=== PATIENT | female | born 1970 | race Caucasian/White ===

== ENCOUNTER → 2016-07-21 | Outpatient (CLI) | payer OTHER | LOC: FIMAGING 11:43 | DX: Z12.31 Encounter for screening mammogram for malignant neoplasm of breast (principal) | CPT/HCPCS: G0202 ==

== ENCOUNTER → 2017-04-25 | Outpatient (CLI) | payer OTHER | LOC: FIMAGING 09:47 | PROVIDERS: ATTEND Obstetrics & Gynecology | DX: N93.0 Postcoital and contact bleeding (principal) ==

== ENCOUNTER 2017-08-08 09:30 | Emergency (ER) | payer OTHER ==
--- NOTE | 2017-08-08 09:43 | CPEKG ---
Heart Rate: 48 RR Interval: 1250 P-R Interval: 136 QRSD Interval: 86 QT Interval: 496 QTC Interval: 444 P [place]: 71 QRS [place]: 57 T Wave [place]: 55 EKG Severity - BORDERLINE ECG - EKG Impression: SINUS BRADYCARDIA EKG Impression: PROBABLE LEFT ATRIAL ABNORMALITY Electronically Signed By: Delia Robert 08-Aug-2017 13:45:45
--- NOTE | 2017-08-08 10:01 | EDPHY ---
HPI/HX/ROS/PE/MDM Narrative: CHIEF COMPLAINT: Chest discomfort HISTORY OF PRESENT ILLNESS: This patient is a 47 y/o female complaining of chest discomfort onset this morning. Just before she was going to go for a run, she developed sharp left anterior chest pain. Severity of her discomfort is 6/10. It is worse with deep inspiration. Patient has had similar chest discomfort intermittently for 20 years. She reports that her discomfort usually resolves on its own. She and her physician believe that the discomfort is musculoskeletal. The patient has seen her PCP in the past and had a normal EKG. Today, she went for her run after the pain began and the discomfort began to radiate across her chest as she was running uphill. Currently, the pain remains , which is unusual for her. She denies diaphoresis, nausea, vomiting, neck pain, or palpitations. No swelling or pain in her legs. The patient has had some reflux symptoms in the past. She is a nonsmoker, and has no history of diabetes, hypertension, or hyperlipidemia. She is not taking contraceptive medications. No personal or family history of clotting disorders. Family history positive for CAD with fatal PR in her grandfather at age 65. The patient denies fever, chills, palpitations, vomiting, diarrhea, urinary complaints, headache, lightheadedness. REVIEW OF SYSTEMS: Aside from elements discussed in the HPI, a comprehensive 10-point review of systems was reviewed and is negative. PAST MEDICAL HISTORY: Denies. SOCIAL HISTORY: . Lives in [place]. No recent illicit drug use. VITAL SIGNS: Reviewed by me GENERAL: Well-developed, well-nourished, resting comfortably in no respiratory distress. HEENT: Atraumatic. Eyes: No icterus, no injection. Mouth: moist mucous membranes. No erythema or lesions. Neck: supple with no adenopathy. LUNGS: Clear to auscultation bilaterally, no wheezes, rhonchi or rales. CHEST: Mild tenderness to palpation just to the left of the midsternal area, no crepitus. No rash. CARDIAC: Regular bradycardia, no rubs, murmurs or gallops. ABDOMEN: Soft, nontender, nondistended, bowel sounds normal. BACK: No CVA tenderness. EXTREMITIES: No trauma. No edema. Range of motion is normal throughout. NEURO: Alert and oriented, grossly nonfocal. SKIN: Warm and dry, no rash. PSYCHIATRIC: Normal mentation, no agitation. Portions of this note were transcribed by a senior medical writer. I personally performed a history, physical exam, medical decision making, and confirmed accuracy of information the transcribed note. ED Course: 47 y/o female presents with sharp left-sided chest pain onset this morning. Exam reveals a small red area on the patients anterior left chest where she has been pressing at the location of her discomfort. Plan for EKG, chest x-ray, labs including CBC, chemistries, troponin, lipase. Patient is PERC negative, will not test d-dimer at this time. Plan to administer GI cocktail for symptom relief. 12-LEAD EKG: Please see the full report in [facility]. My interpretation: Sinus bradycardia, rate 48. Laboratory studies are unremarkable. Troponin negative. Creatinine elevated at 1.2 Chest x-ray negative for acute processes. See full interpretation below. Patient's heart score is 1. HEART SCORE: History: 0 EK Age: 2 Risk Factors: 0 Troponin: 0 11:10 Reassessed patient. She informs me she did have a cardiac stress test last fall which was negative. She continues to experience some discomfort, so plan to administer 15mg IV Toradol for pain relief. Following this, plan to discharge home in good condition. Follow up and return precautions discussed. She is comfortable with this plan. MDM: After history and physical examination, the differential for chest pain was considered, including but not limited to, myocardial ischemia, acute coronary syndrome, pulmonary embolus, chest wall pain, GI causes, pleural inflammation and pulmonary infectious causes. - Data Points Imaging Results: Imaging Impressions Chest X-Ray 08/08/17 10:02 Impression: Possible chronic or recurrent airways disease. Otherwise normal. Imaging: I viewed and interpreted images myself Laboratory Results: Laboratory Results 08/08/17 09:43 08/08/17 09:43 08/08/17 08/08/17 09:43 09:43 WBC 5.18 10^3/uL 10^3/uL (3.80-9.50) RBC 4.24 10^6/uL 10^6/uL (4.18-5.33) Hgb 13.2 g/dL g/dL (12.6-16.3) Hct 38.2 % % (38.0-47.0) MCV 90.1 fL fL (81.5-99.8) MCH 31.1 pg pg (27.9-34.1) MCHC 34.6 g/dL g/dL (32.4-36.7) RDW 12.7 % % (11.5-15.2) Plt Count 316 10^3/uL 10^3/uL (150-400) MPV 9.7 fL fL (8.7-11.7) Neut % (Auto) 50.7 % % (39.3-74.2) Lymph % (Auto) 37.1 % % (15.0-45.0) [place] % (Auto) 9.1 % % (4.5-13.0) Eos % (Auto) 1.7 % % (0.6-7.6) Baso % (Auto) 1.2 % % (0.3-1.7) Nucleat RBC Rel Count 0.0 % % (0.0-0.2) Absolute Neuts (auto) 2.63 10^3/uL 10^3/uL (1.70-6.50) Absolute Lymphs (auto) 1.92 10^3/uL 10^3/uL (1.00-3.00) Absolute Monos (auto) 0.47 10^3/uL 10^3/uL (0.30-0.80) Absolute Eos (auto) 0.09 10^3/uL 10^3/uL (0.03-0.40) Absolute Basos (auto) 0.06 10^3/uL 10^3/uL (0.02-0.10) Absolute Nucleated RBC 0.00 10^3/uL 10^3/uL (0-0.01) Immature Gran % 0.2 % % (0.0-1.1) Immature Gran # 0.01 10^3/uL 10^3/uL (0.00-0.10) Sodium 141 mEq/L mEq/L (135-145) Potassium 4.1 mEq/L mEq/L (3.5-5.2) Chloride 103 mEq/L mEq/L (97-110) Carbon Dioxide 27 mEq/l mEq/l (22-31) Anion Gap 11 mEq/L mEq/L (8-16) BUN 15 mg/dL mg/dL (7-23) Creatinine 1.2 mg/dL H mg/dL (0.6-1.0) Estimated GFR 48 Glucose 72 mg/dL mg/dL (70-100) Calcium 9.3 mg/dL mg/dL (8.5-10.4) Troponin I < 0.012 ng/mL ng/mL (0.000-0.034) Lipase 126 IU/L IU/L (23-300) Medications Given: Discontinued Medications Al Hydroxide/Mg Hydroxide (Maalox Susp) 30 ml PO ONCE ONE Stop: 08/08/17 10:03 Last Admin: 08/08/17 10:09 Dose: 30 ml Hyoscyamine Sulfate (Levsin, Hyomax-Sl) 0.25 mg PO ONCE ONE Stop: 08/08/17 10:03 Last Admin: 08/08/17 10:09 Dose: 0.25 mg Lidocaine (Lidocaine 2% Viscous) 15 ml PO ONCE ONE Stop: 08/08/17 10:03 Last Admin: 08/08/17 10:09 Dose: 15 ml General Time Seen by Provider: 08/08/17 09:35 Initial Vital Signs: Initial Vital Signs Temperature (C) 36.5 C 08/08/17 09:30 Heart Rate 53 L 08/08/17 09:30 Respiratory Rate 18 08/08/17 09:30 Blood Pressure 123/55 H 08/08/17 09:30 O2 Sat (%) 97 08/08/17 09:30 O2 Delivery Mode Room Air Allergies/Adverse Reactions: No Known Allergies Allergy (Unverified 08/08/17 09:30) Home Medications: Medication Instructions Recorded NK [No Known Home Meds] 08/08/17 Departure - Departure Disposition: Home, Routine, Self-Care Clinical Impression: Chest discomfort Condition: Good Instructions: Chest Pain (ED) Additional Instructions: Follow-up with your primary doctor in 2-3 days. Return to the Emergency Department for fever, chest pain, shortness of breath, increasing pain or other worsening of condition. Referrals: Jerod Hernandez MD [[facility] [place] Primary Care Provider] - As per Instructions Report Scribed for: Delia Robert Report Scribed by: Keri Barr Date of Report: 08/08/17 Time of Report: 10:16
[2017-08-08] MEDS ORDERED: LIDOCAINE 2% VISCOUS 15 ML UDCUP PO ONE (10:02)
[2017-08-08] MEDS ORDERED: MAG HYDROX/AL HYDROX/SIMETH 30 ML UDCUP PO ONE (10:02)
[2017-08-08] MEDS ORDERED: HYOSCYAMINE SULFATE 0.125 MG TAB PO ONE (10:02)
[2017-08-08 10:07] LABS: PLATELET COUNT 316 10^3/uL (150-400)
[2017-08-08] MEDS ORDERED: KETOROLAC 15 MG/1 ML SDV IVP ONE (11:18)
[2017-08-08 12:00] VITALS: BP 107/73
== END 2017-08-08 12:08 | disposition home or self-care (01) ==
DX: R07.89 Other chest pain (principal)
CPT/HCPCS: 96374; J1885

== ENCOUNTER → 2017-08-28 | Outpatient (CLI) | payer OTHER | LOC: FIMAGING 12:06 | PROVIDERS: ATTEND Obstetrics & Gynecology | DX: Z12.31 Encounter for screening mammogram for malignant neoplasm of breast (principal) ==

== ENCOUNTER → 2018-09-25 | Outpatient (CLI) | payer OTHER | LOC: FIMAGING 13:45 | PROVIDERS: ATTEND Obstetrics & Gynecology | DX: Z12.31 Encounter for screening mammogram for malignant neoplasm of breast (principal) ==